=== PATIENT | male | born 1955 | race Caucasian/White ===

== ENCOUNTER → 2017-05-11 | Outpatient (CLI) | payer BC ==
--- NOTE | 2017-05-12 08:39 | MR ---
EXAMINATION TYPE: MR knee RT wo con DATE OF EXAM: 05/11/2017 COMPARISON: NONE HISTORY: Right Knee pain TECHNIQUE: Multiplanar, multisequence imaging of the right knee is performed without IV contrast. FINDINGS: MEDIAL MENISCUS: Linear increased signal present within the posterior horn of the medial meniscus ext ending to the articular surface. Some extrusion of the medial meniscus medially. LATERAL MENISCUS: Anterior and posterior horns are intact without tear. CRUCIATE LIGAMENTS: The anterior and posterior cruciate ligaments are intact and some grapelike fluid signal present at the level of the posterior cruciate ligament may represent a local ganglion cyst m easuring 2 cm in greatest dimension. COLLATERAL LIGAMENTS: The medial collateral ligament and lateral collateral ligament complex are inta ct and unremarkable. EXTENSOR MECHANISM: Visualized quadriceps and patellar tendons are intact. EFFUSION: No significant suprapatellar joint effusion. POPLITEAL CYST: No popliteal/lee cyst. TRICOMPARTMENT SPACES: Maintained CARTILAGE: Articular cartilage signal is maintained. BONE MARROW SIGNAL: No focal abnormal marrow signal is appreciated. OTHER: No additional significant abnormality is appreciated. IMPRESSION: Tear of the posterior horn of the medial meniscus. Additional findings above.
== END | disposition home or self-care (01) ==
LOC: RADMRIMAIN 15:38
PROVIDERS: ATTEND Orthopaedic Surgery
DX: S83.241A Other tear of medial meniscus, current injury, right knee, initial encounter (principal)

== ENCOUNTER → 2021-12-08 | Outpatient (CLI) | payer OTHER ==
--- NOTE | 2021-12-08 16:16 | XR ---
EXAMINATION TYPE: XR knee complete RT DATE OF EXAM: 12/08/2021 CLINICAL HISTORY: pain TECHNIQUE: Three views of the right knee are obtained. COMPARISON: None. FINDINGS: There is no acute fracture/dislocation. The tri-compartment joint spaces appear within no rmal limits. The overlying soft tissue appears unremarkable. IMPRESSION: There is no acute fracture or dislocation.ICD 10 NO FRACTURE, INITIAL EVALUATION
== END | disposition home or self-care (01) ==
LOC: RADXRMAIN 15:49
PROVIDERS: ATTEND Emergency Medicine
DX: M25.561 Pain in right knee (principal)

== ENCOUNTER → 2022-01-28 | Outpatient (CLI) | payer OTHER, BC ==
--- NOTE | 2022-01-28 15:23 | MR ---
EXAMINATION TYPE: MR knee RT wo con DATE OF EXAM: 01/28/2022 COMPARISON: MRI knee 05/11/2017. Right knee x-ray dated 12/08/2021. HISTORY: Right knee pain since slip and fall May 2021, history of surgery. TECHNIQUE: Multiplanar, multisequence imaging of the right knee is performed without IV contrast. FINDINGS: MEDIAL MENISCUS: Medial extrusion of medial meniscus is redemonstrated. Persistent irregular and obli que increased signal posterior horn extends to inferior articular surface similar appearance to prior . LATERAL MENISCUS: Anterior and posterior horns remain intact CRUCIATE LIGAMENTS: The anterior and posterior cruciate ligaments are intact and unremarkable. COLLATERAL LIGAMENTS: The medial collateral ligament and lateral collateral ligament complex are inta ct and unremarkable. EXTENSOR MECHANISM: Visualized quadriceps and patellar tendons are intact. EFFUSION: No significant suprapatellar joint effusion. POPLITEAL CYST: No popliteal/lee cyst. TRICOMPARTMENT SPACES: Mild tricompartment joint space loss. Mild tricompartment spurring. CARTILAGE: Tricompartment articular cartilage preserved. BONE MARROW SIGNAL: No focal abnormal marrow signal is appreciated. OTHER: No additional significant abnormality is appreciated. IMPRESSION: Redemonstration of full-thickness tear posterior horn medial meniscus. No new meniscal or ligamentous tear. No new osseous edema.
== END | disposition home or self-care (01) ==
LOC: RADMRIMAIN 14:34
PROVIDERS: ATTEND Emergency Medicine
DX: M25.561 Pain in right knee (principal)

== ENCOUNTER 2025-01-05 08:48 | Day surgery (SDC) | payer BC, MEDICARE ==
[2025-01-02 16:55] VITALS: BMI 25.7
[~2025-01-05 08:48] MED LIST: HYDROmorphone 0.5 MG/0.5 ML SYRINGE IVP PRN
[2025-01-05] MEDS: IV FLUID CONTINUATION 1,000 ML IV ONE (09:18)
[2025-01-05 09:41] LABS: Glucose,Whole Blood 138 mg/dL (70-110)
[2025-01-05] MEDS: MIDAZOLAM 2 MG/2 ML VIAL IV PRN (10:17)
[2025-01-05] MEDS: fentaNYL (PF) 50 MCG/ML 2 ML AMP IVP PRN (10:17)
[2025-01-05] MEDS: DEXAMETHASONE SOD PHOSPHATE 4 MG/ML 1 ML VIAL IV ONE (10:36)
[2025-01-05] MEDS: ONDANSETRON 4 MG/2 ML VIAL IVP ONE (10:36)
[2025-01-05] MEDS: LACTATED RINGERS 1,000 ML IV SCH (10:38)
[2025-01-05] MEDS ORDERED: MIDAZOLAM 2 MG/2 ML VIAL ONE (11:20)
[2025-01-05] MEDS ORDERED: PROPOFOL 10 MG/ML 20 ML VIAL IV ONE (11:20)
[2025-01-05] MEDS ORDERED: fentaNYL (PF) 50 MCG/ML 2 ML AMP ONE (11:20)
[2025-01-05] MEDS ORDERED: SODIUM CHLORIDE 0.9% (PF) 10 ML VIAL ONE (11:20)
[2025-01-05] MEDS ORDERED: ROPIVACAINE 5 MG/ML 30 ML VIAL ONE (11:20)
[2025-01-05] MEDS ORDERED: LIDOCAINE 1% INJ 10MG/ML (20 ML MDV) ONE (11:20)
--- NOTE | 2025-01-05 12:43 | FL ---
EXAMINATION TYPE: FL guidance operating room, XR ankle complete RT DATE OF EXAM: 01/05/2025 CLINICAL HISTORY: Right ankle fracture. Intraoperative 3 views right ankle. TECHNIQUE: Fluoroscopy. COMPARISON: None. FINDINGS: Fluoroscopic guidance was provided during open reduction and internal fixation procedure p erformed by Dr. Toney. A total of 89.7 seconds of fluoroscopic time was utilized during the procedur e and 3 spot images was acquired. Total dose area product (DAP) in uGy*m?, mGy*cm? (or similar: 0.06 262. Intraoperative images acquired show placement of intramedullary therese with distal fixating screws thru the fracture of the distal fibula and larger radiolucent fixating screw extending through the distal tibia. Satisfactory alignment is seen on intraoperative images provided. IMPRESSION: As Above. [facility], , 01/05/2025 12:41 PM
[2025-01-05 12:44] VITALS: TEMP 97.4
--- NOTE | 2025-01-05 12:50 | P.OP ---
Date of Procedure: 01/05/25 Preoperative Diagnosis: Displaced lateral malleolar fracture right ankle Postoperative Diagnosis: Displaced lateral malleolar fracture right ankle Ruptured syndesmosis right ankle Procedure(s) Performed: Open reduction with internal fixation right lateral malleolar fracture Open reduction and fixation of the syndesmosis right ankle Implants: Arthrex 3.0 mm x 130 mm Fibulock nail with 3.0 millimeter screws x 2 Arthrex tight rope Anesthesia: MANUELAA Surgeon: Deuce Toney Estimated Blood Loss (ml): 2 Pathology: none sent Condition: stable Disposition: PACU Description of Procedure: Prior to the patient being brought to the op room, anesthesia administered a nerve block on the operative extremity. The patient was brought into the op room and placed on the table in the supine position. Timeout was taken to confirm correct patient identifiers, correct laterality of surgery, and correct procedure. Once all staff in the room was in agreement with the timeout, the patient was induced and placed under general anesthesia. A well-padded tourniquet was placed on the operative thigh. A bump was placed underneath the leg and a wedge beneath the hip to internally rotate the leg. The leg was prepped and draped in the usual manner. The leg was exsanguinated with an Esmarch bandage, the knee was flexed, and the tourniquet inflated to 250 mmHg. Under direct fluoroscopic visualization, the landmarks of the distal end of the fibula as well as the linear direction of the fibula were marked on the skin. A guidewire was placed at the distal tip of the fibula. Before advancing the wire, fluoroscopy was used to check the trajectory on the AP and lateral views. The wire was slowly advanced to the line of the fracture. The trajectory was appropriate, however there was some instability of the fracture. Therefore a small incision was made over the fracture, taken down to the fibula, and then an elevator used to separate the soft tissue anteriorly and posteriorly. A bone reduction clamp was then inserted around the fracture and tightened to hold the fracture in place during drilling and nail insertion. The wire was then advanced past the fracture. Fluoroscopy confirmed the proper trajectory of the wire, however the fibular canal was fairly narrow at this point so the wire would not advance any further proximal. A small stab incision was made through the skin around the guidewire and the tissue bluntly dissected to the tip of the fibula. The large fluted reamer was then used to drill the distal end of the fibula down to the appropriate depth. The drill and guidewire were removed and then the curved wire guide was inserted into the drill hole and advanced into the canal of the fibula. The wire was placed to the guide which allowed the wire to advance further proximal in the fibular shaft. The guide was removed and then the over drilling was performed over the wire until the appropriate depth was achieved. The nail was then inserted and impacted until it was at proper depth. Fluoroscopy confirmed the proper placement the nail on AP and lateral views. The proximal talons were deployed until locked in place. Drill guides were placed through the jig for the distal locking screws. Drilling was done until the medial cortex of the fibula was reached. This was repeated for both screws. The screws were advanced until the heads engage the lateral cortex of the fibula. Final fluoroscopic imaging showed anatomic reduction of the fracture and proper placement of the nail. Under live fluoroscopy stress testing was performed. There was gapping at the syndesmosis as well as the medial clear space. A reduction clamp was placed across the joint to stabilize the syndesmosis. With the clamp in place stress testing showed that the joint was now stable. The decision to place a tight rope was then made. Through the same jig on the nail, drilling was performed for the insertion of the tight rope. The jig was removed and then the tight rope inserted through the drill hole until the medial button was clear of the tibial cortex. The button was deployed and manipulated so that laid flat against the tibia. The flexible babysitter was removed. With ankle maximum dorsiflexion, the lateral button was tightened agai nst the fibula. Stress testing was repeated and there was no gapping of the medial clear space or any excessive motion of the syndesmosis. The suture was then cut and the wound was thoroughly irrigated with antibiotic saline. Subcutaneous closure was done with 4-0 Monocryl and skin closure done with 3-0 nylon. Arthrex jumpstart and a dry sterile dressing applied to the ankle. The tourniquet was released and capillary refill returned to all digits on the foot. The patient was then placed in a below-knee fracture boot with the ankle neutral position. Anesthesia was reversed and the patient was transported to recovery with vital signs stable.
[2025-01-05 13:19] VITALS: RESP 18
--- NOTE | 2025-01-05 13:27 | P.ANPRN ---
Procedure Note - Anesthesia - Nerve Block Performed Right Popliteal Single Time Out Performed: Yes (1016) Date of Procedure: 01/05/25 Procedure Start Time: 10:17 Procedure Stop Time: :21 Location of Patient: PreOp Indication: Acute Post-Operative Pain, Requested by Surgeon Sedation Type: Sedate with meaningful contact maintained Preparation: Sterile Prep Position: Left Lateral Catheter: None Needle Types: Pajunk Needle Gauge: 21 Ultrasound used to visualize needle placement: Yes Ultrasound used to observe medication spread: Yes Injectate: 0.5% Ropivacaine (see comment for volume) (15cc+10cc nacl pf +4mg decadron) Blood Aspirated: No Pain Paresthesia on Injection Noted: No Resistance on Injection: Normal Image Stored and Saved: Yes Events: Uneventful and Well Tolerated
--- NOTE | 2025-01-05 13:28 | P.ANPRN ---
Procedure Note - Anesthesia - Nerve Block Performed Right Adductor Canal Single Time Out Performed: Yes (1116) Date of Procedure: 01/05/25 Procedure Start Time: : Procedure Stop Time: 24 Location of Patient: PreOp Indication: Acute Post-Operative Pain, Requested by Surgeon Specifically requested for management of pain by DrNasir: Deuce Toney Sedation Type: Sedate with meaningful contact maintained Preparation: Sterile Prep Position: Supine Catheter: None Needle Types: Pajunk Needle Gauge: 21 Ultrasound used to visualize needle placement: Yes Ultrasound used to observe medication spread: Yes Injectate: 0.5% Ropivacaine (see comment for volume) (15cc+10cc nacl pf +4mg decadron) Blood Aspirated: No Pain Paresthesia on Injection Noted: No Resistance on Injection: Normal Image Stored and Saved: Yes Events: Uneventful and Well Tolerated
[2025-01-05 13:46] VITALS: BP 144/79; PULSE 81
== END 2025-01-05 14:08 | disposition home or self-care (01) ==
LOC: OR 08:48
PROVIDERS: ATTEND Podiatrist
DX: S82.61XA Displaced fracture of lateral malleolus of right fibula, initial encounter for closed fracture (principal); G89.18 Other acute postprocedural pain; I10 Essential (primary) hypertension; E78.5 Hyperlipidemia, unspecified; E11.9 Type 2 diabetes mellitus without complications; Z79.84 Long term (current) use of oral hypoglycemic drugs; Z79.899 Other long term (current) drug therapy; X58.XXXA Exposure to other specified factors, initial encounter
CPT/HCPCS: 64447; 64445; 84132; 73610; 27829; C1713; J2250; J1100; J0690; J2405; J2003; J3010; J2795; J2704